=== PATIENT | female | born 1965 | race Hispanic/Latino ===

== ENCOUNTER 2020-03-16 16:52 | Outpatient (CLI) | payer BC ==
--- NOTE | 2020-03-16 17:13 | SJPRAD ---
Chest 2 views HISTORY: Cough. Dyspnea. FINDINGS: Cardiac silhouette is within normal limits. Pulmonary vasculature predominantly obscured by ill-defined patchy parenchymal infiltrate throughout each lung. No lobar consolidation, pneumothorax, or pleural fluid evident. Postoperative changes of the gallblad traci fossa suggest prior cholecystectomy. IMPRESSION : Patchy bilateral parenchymal infiltrates as often seen with COVID pneumonitis.
== END 2020-03-16 16:53 | disposition home or self-care (01) ==
LOC: SCSRAD 16:52
PROVIDERS: ATTEND Family Medicine
DX: R05 Cough (principal); R91.8 Other nonspecific abnormal finding of lung field
CPT/HCPCS: 87635; U0003

== ENCOUNTER 2020-09-15 13:51 | Outpatient (CLI) | payer OTHER | END 2020-09-15 13:52 | disposition home or self-care (01) | LOC: BICMRI 13:51 | PROVIDERS: ATTEND Family Medicine | DX: S46.912D Strain of unspecified muscle, fascia and tendon at shoulder and upper arm level, left arm, subsequent encounter (principal); M75.102 Unspecified rotator cuff tear or rupture of left shoulder, not specified as traumatic ==